=== PATIENT | male | born 1945 | race African-American/Black ===

== ENCOUNTER 2016-10-26 13:12 | Emergency (ER) | payer MEDICARE, OTHER ==
[~2016-10-26] VITALS: Ht 172.7 cm; Wt 77.1 kg
[2016-10-26] MEDS ORDERED: fentaNYL PF VIAL 100 MCG/2 ML VIAL IV PRN ×2 (13:30→14:00)
[2016-10-26] MEDS ORDERED: ONDANSETRON PF 4 MG/2 ML VIAL. IV ONE ×2 (13:30→14:00)
[2016-10-26 13:39] LABS: BASO % 0 % (0-3); EOS % 2 % (0-3); HEMATOCRIT 37.4 % (39.0-53.0); HEMOGLOBIN 12.6 g/dL (13.0-17.5); LYMPH # 1.8 x10^3/uL (1.0-4.8); LYMPH % 24 % (24-48); MEAN CORPUSCULAR HEMOGLOBIN 29 pg (25-35); MEAN CORPUSCULAR HGB CONC 34 g/dL (31-37); MEAN CORPUSCULAR VOLUME 87 fL (79-100); MONO % 11 % (0-9); NEUT % 64 % (31-73); PLATELET COUNT 259 x10^3/uL (140-400); RED BLOOD COUNT 4.32 x10^6/uL (4.30-5.70); RED CELL DISTRIBUTION WIDTH 12.7 % (11.5-14.5); WHITE BLOOD COUNT 7.8 x10^3/uL (4.0-11.0)
[2016-10-26 13:51] LABS: CALCIUM 8.6 mg/dL (8.5-10.1); CREATININE 1.6 mg/dL (0.7-1.3); GFR 42.9; POTASSIUM 3.4 mmol/L (3.5-5.1)
[2016-10-26 13:56] LABS: ALBUMIN 4.3 g/dL (3.4-5.0); TOTAL PROTEIN 8.5 g/dL (6.4-8.2)
[2016-10-26] MEDS ORDERED: IV NORMAL SALINE 1000ML BAG 1,000 ML IV SCH (13:57)
--- NOTE | 2016-10-26 14:28 | ED.ADGEN ---
Past Medical History Past Medical History: GERD, High Cholesterol, Hypertension, [place] Past Surgical History: Other Additional Past Surgical Histo: CARDIAC STENTS Alcohol Use: None Drug Use: None Adult General Chief Complaint Chief Complaint: ABDOMINAL PAIN HPI HPI Patient is a 70 year old man, history of CAD status post RI with [address], hypertension, hyperlipidemia, GERD presents to the emergency department with a complaint of abdominal pain, nausea and vomiting for the past week, states this is only with eating. Patient states that he is experiencing abdominal discomfort in the epigastric and right upper quadrant region, denies any similar lesions previously, states that he is having occasional episodes of emesis with food and fluid, denies any bile or blood. Has not previously had any issues aside from his GERD for which he takes medication daily. He denies any chest pain or shortness of breath, aside from his typical shortness of breath which is chronic. States that the pain and vomiting only occurs after eating, he is able tolerate fluids such as water without issue, but has become frustrated by the abdominal discomfort. Denies any swelling of the extremities, any recent travel or surgery, any fevers or chills, any weakness, numbness or tingling. Review of Systems Review of Systems Constitutional: Denies fever or chills. [] Eyes: Denies change in visual acuity. [] HENT: Denies nasal congestion or sore throat. [] Respiratory: Denies cough or shortness of breath. [] Cardiovascular: Denies chest pain or edema. [] GI: Abdominal pain, epigastric and right upper quadrant, nausea, vomiting, no bloody stools or diarrhea. [Last bowel movement was yesterday and was normal.] : Denies dysuria. [] Musculoskeletal: Denies back pain or joint pain. [] Integument: Denies rash. [] Neurologic: Denies headache, focal weakness or sensory changes. [] Endocrine: Denies polyuria or polydipsia. [] Lymphatic: Denies swollen glands. [] Psychiatric: Denies depression or anxiety. [] Current Medications Current Medications Current Medications Medications (Trade) Dose Ordered Sig/Vasiliy Start Time Stop Time Status Last Admin Dose Admin Dicyclomine HCl (Bentyl) 10 mg 1X ONCE 10/26/16 18:45 10/26/16 18:46 DC 10/26/16 18:38 10 MG Fentanyl Citrate (Fentanyl 2ml Vial) 25 mcg PRN Q15MIN PRN 10/26/16 14:00 10/27/16 13:59 Cancel Ondansetron HCl (Zofran) 4 mg 1X ONCE 10/26/16 14:00 10/26/16 14:05 DC Sodium Chloride 1,000 ml @ 1,000 mls/hr Q1H 10/26/16 13:57 10/26/16 14:56 DC 10/26/16 14:25 1,000 MLS/HR Allergies Allergies Allergies Coded Allergies Type Severity Reaction Last Updated Verified No Known Drug Allergies 10/26/16 No Physical Exam Physical Exam Constitutional: Well developed, well nourished, no acute distress, non-toxic appearance. [] HENT: Normocephalic, atraumatic, bilateral external ears normal, oropharynx moist, no oral exudates, nose normal. [] Eyes: PERRLA, EOMI, conjunctiva normal, no discharge. [] Neck: Normal range of motion, no tenderness, supple, no stridor. [] Cardiovascular:Heart rate regular rhythm, no murmur, S1, S2, rubs or gallops. [] Lungs & Thorax: Bilateral breath sounds clear to auscultation, no wheezing, rhonchi, rales. No chest or crepitus or tenderness. [] Abdomen: Bowel sounds normal, soft, tenderness to palpation in the epigastric and right are quadrant region, no rebound or rigidity, mild guarding, no masses , no pulsatile masses. [] Skin: Warm, dry, no erythema, no rash. [] Back: No tenderness, no CVA tenderness. [] Extremities: No tenderness, no cyanosis, no clubbing, ROM intact, no edema. [] Neurologic: Alert and oriented X 3, normal motor function, normal sensory function, no focal deficits noted. [] Psychologic: Affect normal, judgement normal, mood normal. [] Current Patient Data Vital Signs Vital Signs Date Time Temp Pulse Resp B/P (MAP) Pulse Ox O2 Delivery O2 Flow Rate FiO2 10/26/16 18:00 74 16 144/79 (100) 96 Room Air 10/26/16 13:20 97.7 97.7 Lab Values Laboratory Tests Test 10/26/16 13:29 10/26/16 15:45 White Blood Count 7.8 x10^3/uL (4.0-11.0) Red Blood Count 4.32 x10^6/uL (4.30-5.70) Hemoglobin 12.6 g/dL (13.0-17.5) L Hematocrit 37.4 % (39.0-53.0) L Mean Corpuscular Volume 87 fL (79-100) Mean Corpuscular Hemoglobin 29 pg (25-35) Mean Corpuscular Hemoglobin Concent 34 g/dL (31-37) Red Cell Distribution Width 12.7 % (11.5-14.5) Platelet Count 259 x10^3/uL (140-400) Neutrophils (%) (Auto) 64 % (31-73) Lymphocytes (%) (Auto) 24 % (24-48) Monocytes (%) (Auto) 11 % (0-9) H Eosinophils (%) (Auto) 2 % (0-3) Basophils (%) (Auto) 0 % (0-3) Neutrophils # (Auto) 5.0 x10^3uL (1.8-7.7) Lymphocytes # (Auto) 1.8 x10^3/uL (1.0-4.8) Monocytes # (Auto) 0.8 x10^3/uL (0.0-1.1) Eosinophils # (Auto) 0.1 x10^3/uL (0.0-0.7) Basophils # (Auto) 0.0 x10^3/uL (0.0-0.2) Sodium Level 141 mmol/L (136-145) Potassium Level 3.4 mmol/L (3.5-5.1) L Chloride Level 104 mmol/L (98-107) Carbon Dioxide Level 30 mmol/L (21-32) Anion Gap 7 (6-14) Blood Urea Nitrogen 16 mg/dL (8-26) Creatinine 1.6 mg/dL (0.7-1.3) H Estimated GFR (Cockcroft-Gault) 42.9 BUN/Creatinine Ratio 10 (6-20) Glucose Level 126 mg/dL (70-99) H Calcium Level 8.6 mg/dL (8.5-10.1) Total Bilirubin 1.0 mg/dL (0.2-1.0) Aspartate Amino Transferase (AST) 15 U/L (15-37) Alanine Aminotransferase (ALT) 16 U/L (16-63) Alkaline Phosphatase 100 U/L (46-116) Troponin I Quantitative < 0.017 ng/mL (0.000-0.055) Total Protein 8.5 g/dL (6.4-8.2) H Albumin 4.3 g/dL (3.4-5.0) Albumin/Globulin Ratio 1.0 (1.0-1.7) Lipase 128 U/L (73-393) Urine Collection Type Unknown Urine Color Yellow Urine Clarity Clear Urine pH 8.0 Urine Specific [place] 1.010 Urine Protein Negative mg/dL (NEG-TRACE) Urine Glucose (UA) Negative mg/dL (NEG) Urine Ketones (Stick) Negative mg/dL (NEG) Urine Blood Negative (NEG) Urine Nitrite Negative (NEG) Urine Bilirubin Negative (NEG) Urine Urobilinogen Dipstick 0.2 mg/dL (0.2 mg/dL) Urine Leukocyte Esterase Negative (NEG) Urine RBC 0 /HPF (0-2) Urine WBC 0 /HPF (0-4) Urine Squamous Epithelial Cells Occ /LPF Urine Bacteria 0 /HPF (0-FEW) Urine Hyaline Casts Occasional /HPF Urine Mucus Slight /LPF Laboratory Tests 10/26/16 13:29 Laboratory Tests 10/26/16 13:29 EKG EKG EC: Sinus rhythm, heart rate 77 beats/minute, left axis deviation, contour normality is noted in the inferior leads, with a QTC of 423, ND of 178, QRS of 94, abnormal ECG, does not meet STEMI criteria. As interpreted by me. Radiology/Procedures Radiology/Procedures [][facility] [address] [place], [place] [id number] IMAGING REPORT Signed PATIENT: TONY DELGADO ACCOUNT: [id number] : 1945 LOCATION: ER AGE: 70 SEX: M EXAM STATUS: PRE ER ORD. PHYSICIAN: TUSHAR YANES DO REASON: abd pain/n/v PROCEDURE: ACUTE ABDOMEN SERIES Two-view abdominal series and PA view chest x-ray History: Abdominal pain with nausea and vomiting. Findings: No obstructive bowel pattern is seen. Mild fecal retention is seen within the right side of the colon. No air-fluid levels are seen. No free intraperitoneal air is seen. The osseous structures are intact. Chest x-ray demonstrates no acute lung infiltrate or pleural effusion or pulmonary edema or pneumothorax. The heart size and pulmonary vasculature and mediastinum and both andrei are unremarkable. There is an exostosis involving the medial aspect of the proximal left humeral metaphysis. This could represent an osteochondroma or callus formation associated with any fracture. IMPRESSION: No acute radiographic abnormality. Osteochondroma versus healing callus formation around a fracture of the proximal left humerus. Clinical correlation is recommended. DICTATED and SIGNED BY: JAYANT LIRA MD DATE: 10/26/16 1434 CC: TUSHAR YANES DO ~ Course & Med Decision Making Course & Med Decision Making Pertinent Labs and Imaging studies reviewed. (See chart for details) Patient received antiemetics and pain medication the ED, with full resolution of his symptoms. Received ultrasound of the right upper quadrant, and acute abdominal series, both revealed no evidence of abdominal abnormalities, patient was noted to have a 17 mm nodule in the right kidney. Laboratory studies were also unremarkable, I did discuss these findings with patient. He has remained asymptomatic in the emergency department since receiving the initial dose of medication, and has been present in the ED for 5 hours, as his ultrasound was delayed 3 hours due to a systems issue. Patient states he is ready to go home, states that he will be able follow up with his primary care provider for additional evaluation, can call tomorrow. Discussed with patient that we have not identified a concerning cause for his symptoms here in the ED, but he is welcome to return at any time if symptoms return, if any new or concerning symptoms as discussed develop. Did recommend following up with his primary care provider on Thursday for additional evaluation, he was also given contact information for GI. Patient was given first dose of Bentyl in the ED, which he tolerated without issue, discharged with prescription for Bentyl and Zofran, clear and detailed return instructions and precautions. Dragon Disclaimer Dragon Disclaimer This electronic medical record was generated, in whole or in part, using a voice recognition dictation system. Departure Impression: Primary Impression: Abdominal pain Disposition: HOME, SELF-CARE Condition: IMPROVED Scripts Dicyclomine Hcl (BENTYL) 10 Mg Capsule 10 MG PO QID Y for PAIN, #12 TAB Prov: TUSHAR YANES DO 10/26/16 Ondansetron Hcl (ZOFRAN) 4 Mg Tablet 1 TAB PO Q8HRS Y for NAUSEA, #12 TAB Prov: TUSHAR YANES DO 10/26/16 TUSHAR YANES DO Oct 26, 2016 14:28
--- NOTE | 2016-10-26 14:40 | RAD ---
Two-view abdominal series and PA view chest x-ray History: Abdominal pain with nausea and vomiting. Findings: No obstructive bowel pattern is seen. Mild fecal retention is seen within the right side of the colon. No air-fluid levels are seen. No free intraperitoneal air is seen. The osseous structures are intact. Chest x-ray demonstrates no acute lung infiltrate or pleural effusion or pulmonary edema or pneumothorax. The heart size and pulmonary vasculature and mediastinum and both andrei are unremarkable. There is an exostosis involving the medial aspect of the proximal left humeral metaphysis. This could represent an osteochondroma or callus formation associated with any fracture. IMPRESSION: No acute radiographic abnormality. Osteochondroma versus healing callus formation around a fracture of the proximal left humerus. Clinical correlation is recommended.
[2016-10-26 16:01] LABS: BILIRUBIN,URINE NEGATIVE (NEG); GLUCOSE,URINE NEGATIVE (NEG); NITRITE,URINE NEGATIVE (NEG); PROTEIN,URINE NEGATIVE (NEG-TRACE); UROBILINOGEN,URINE 0.2 mg/dL (0.2 mg/dL)
[2016-10-26 16:08] LABS: BACTERIA,URINE 0 /HPF (0-FEW); RBC,URINE 0 /HPF (0-2); SQUAMOUS EPITHELIAL CELL,UR OCC /LPF; WBC,URINE 0 /HPF (0-4)
--- NOTE | 2016-10-26 17:28 | RAD ---
Limited abdomen ultrasound study of the right upper quadrant History: Right upper quadrant abdominal pain with nausea and vomiting. Findings: The liver measures 13.8 cm in length and is homogeneous. The pancreas is partially obscured due to overlying bowel gas. What is visualized of the pancreas is homogeneous without focal enlargement. The gallbladder is normal without gallstones. The extra hepatic bile duct measures 3.1 mm in caliber which is normal. The length of the right kidney is 9.2 cm. There is a small hypoechoic nodule within the anterior mid aspect of the right kidney measuring 17 mm in size. No hydronephrosis is seen on this side. IMPRESSION: Normal sonographic evaluation of the gallbladder. 17 mm nodule of the right kidney. Recommend outpatient abdomen CT with and without contrast for further evaluation.
[2016-10-26 18:00] VITALS: BP 144/79
[2016-10-26] MEDS ORDERED: ONDA4TAB7 PO (18:39)
[2016-10-26] MEDS ORDERED: DICY10CA53 PO (18:39)
[2016-10-26] MEDS ORDERED: DICYCLOMINE HCL 10 MG CAPSULE PO ONE (18:45)
--- NOTE | 2016-10-27 06:08 | EKG ---
[facility] [address] [place] [address] Test Date: 2016-10-26 Test Time: 13:49:50 Pat Name: TONY DELGADO Department: Room: Gender: M Community Health Navigator: : 1945 Requested By: TUSHAR YANES Order Number: [id number] Reading MD: Arthur Tse Measurements Intervals [place] Rate: 77 P: 42 MA: 178 QRS: 0 QRSD: 94 T: 49 QT: 372 QTc: 423 Interpretive Statements SINUS RHYTHM LEFTWARD AXIS QRS(T) CONTOUR ABNORMALITY CONSISTENT WITH INFERIOR INFARCT PROBABLY OLD ABNORMAL ECG RI6.01 No previous ECG available for comparison Electronically Signed On 10-27-2016 17:36:46 CDT by Arthur Tse
== END 2016-10-26 18:47 | disposition home or self-care (01) ==
LOC: ER 13:12
DX: R10.13 Epigastric pain (principal); R10.11 Right upper quadrant pain; R11.2 Nausea with vomiting, unspecified; E78.00 Pure hypercholesterolemia, unspecified; E78.5 Hyperlipidemia, unspecified; I10 Essential (primary) hypertension; I25.10 Atherosclerotic heart disease of native coronary artery without angina pectoris; K21.9 Gastro-esophageal reflux disease without esophagitis; I25.2 Old myocardial infarction; Z95.5 Presence of coronary angioplasty implant and graft
CPT/HCPCS: 36415; 74022; 76705; 80053; 81001; 83690; 84484; 85027; 93005; 96361; 96374; 99285; J2405; J7030

== ENCOUNTER 2017-04-19 11:30 | Emergency (ER) | payer MEDICARE, OTHER ==
[2017-04-19 12:11] LABS: ADD MAN DIFF? NO
[2017-04-19 12:18] LABS: BILIRUBIN,URINE NEGATIVE (NEG); CLARITY,URINE CLEAR; COLOR,URINE YELLOW; GLUCOSE,URINE NEGATIVE (NEG); NITRITE,URINE NEGATIVE (NEG); PROTEIN,URINE 30 mg/dL (NEG-TRACE)
[2017-04-19 12:19] LABS: BASO % 0 % (0-3); EOS # 0.1 x10^3/uL (0.0-0.7); EOS % 1 % (0-3); HEMATOCRIT 40.8 % (39.0-53.0); HEMOGLOBIN 13.9 g/dL (13.0-17.5); LYMPH # 1.5 x10^3/uL (1.0-4.8); LYMPH % 18 % (24-48); MEAN CORPUSCULAR HEMOGLOBIN 30 pg (25-35); MEAN CORPUSCULAR HGB CONC 34 g/dL (31-37); MEAN CORPUSCULAR VOLUME 87 fL (79-100); MONO # 0.7 x10^3/uL (0.0-1.1); MONO % 9 % (0-9); NEUT # 6.1 x10^3uL (1.8-7.7); NEUT % 73 % (31-73); PLATELET COUNT 265 x10^3/uL (140-400); RED CELL DISTRIBUTION WIDTH 12.8 % (11.5-14.5); WHITE BLOOD COUNT 8.5 x10^3/uL (4.0-11.0)
[2017-04-19 12:35] LABS: INR 1.1 (0.8-1.1); PARTIAL THROMBOPLASTIN TIME 29 SEC (24-38); PROTHROMBIN TIME PATIENT 13.3 SEC (11.7-14.0)
[2017-04-19 12:42] LABS: BACTERIA,URINE 0 /HPF (0-FEW); WBC,URINE OCC /HPF (0-4)
[2017-04-19 12:43] LABS: HYALINE CASTS, URINE MODERATE /HPF
[2017-04-19] MEDS: LIDO:MAALOX:DONNATAL 1:1:1 15 ML SINGLE DOSE SWSW ×2 (12:52)
[2017-04-19] MEDS: ONDANSETRON PF 4 MG/2 ML VIAL. IV ×2 (12:53)
[2017-04-19] MEDS: MORPHINE SULFATE 10 MG/ML VIAL. IV ×2 (12:53)
[2017-04-19] MEDS: IV NORMAL SALINE 1000ML BAG 1,000 ML IV ×2 (12:53)
[2017-04-19 12:54] LABS: BLOOD UREA NITROGEN 14 mg/dL (8-26); BUN/CREATININE RATIO 13 (6-20); CALCIUM 9.1 mg/dL (8.5-10.1); CARBON DIOXIDE 24 mmol/L (21-32); CHLORIDE 104 mmol/L (98-107); CREATININE 1.1 mg/dL (0.7-1.3); GFR 79.8; GLUCOSE 115 mg/dL (70-99); POTASSIUM 3.8 mmol/L (3.5-5.1)
[2017-04-19 13:00] LABS: ALBUMIN 4.4 g/dL (3.4-5.0); ALBUMIN/GLOBULIN RATIO 1.1 (1.0-1.7); ALK PHOS 94 U/L (46-116); ALT (SGPT) 20 U/L (16-63); AST (SGOT) 14 U/L (15-37); LIPASE 186 U/L (73-393); MAGNESIUM 2.1 mg/dL (1.8-2.4); TOTAL BILIRUBIN 0.5 mg/dL (0.2-1.0); TOTAL PROTEIN 8.5 g/dL (6.4-8.2)
[2017-04-19] MEDS ORDERED: CONTRAST GIVEN MC ×2 (13:00)
[2017-04-19 13:02] LABS: TROPONINI < 0.017 ng/mL (0.000-0.055)
[2017-04-19] MEDS: IOHEXOL 300 MG/ML 100ML VIAL. IV ×2 (13:02)
[2017-04-19 13:05] LABS: NT-PRO BNP 72 pg/mL (0-124)
[2017-04-19 13:16] LABS: ANION GAP 9 (6-14); SODIUM 137 mmol/L (136-145)
== END 2017-04-19 14:48 | disposition home or self-care (01) ==
LOC: ER 11:30
DX: R10.84 Generalized abdominal pain (principal); R94.31 Abnormal electrocardiogram [ECG] [EKG]; R10.13 Epigastric pain; R11.0 Nausea; I25.10 Atherosclerotic heart disease of native coronary artery without angina pectoris; K21.9 Gastro-esophageal reflux disease without esophagitis; E78.00 Pure hypercholesterolemia, unspecified; I10 Essential (primary) hypertension; I25.2 Old myocardial infarction; Z95.5 Presence of coronary angioplasty implant and graft
CPT/HCPCS: 36415; 74177; 80053; 81001; 83690; 83735; 83880; 84484; 85025; 85610; 85730; 93005; 96361; 96374; 96375; 99285-25; J2270; J2405; J7030; Q9967

== ENCOUNTER 2017-04-23 07:25 | Emergency (ER) | payer MEDICARE, OTHER ==
[2017-04-23] MEDS: KETOROLAC 60 MG/2 ML INJ. IM (08:00)
[2017-04-23 08:04] LABS: BILIRUBIN,URINE NEGATIVE (NEG); CLARITY,URINE CLEAR; COLOR,URINE YELLOW; GLUCOSE,URINE NEGATIVE (NEG); NITRITE,URINE NEGATIVE (NEG); PROTEIN,URINE NEGATIVE (NEG-TRACE); UROBILINOGEN,URINE 0.2 mg/dL (0.2 mg/dL)
[2017-04-23 08:15] LABS: BACTERIA,URINE FEW /HPF (0-FEW); BARBITURATES NEG (NEG); BENZODIAZEPINES NEG (NEG); CANNABINOIDS NEG (NEG); COCAINE NEG (NEG); METHADONE NEG (NEG); OPIATES NEG (NEG); PHENCYCLIDINE NEG (NEG); RBC,URINE 0 /HPF (0-2); SQUAMOUS EPITHELIAL CELL,UR OCC /LPF
[2017-04-23 08:16] LABS: AMPHETAMINE/METHAMPHETAMINE NEG (NEG); ETHANOL, URINE NEG (NEG)
[2017-04-23 08:17] LABS: ADD MAN DIFF? NO
[2017-04-23] MEDS ORDERED: KETOROLAC 30 MG/ML INJ. (08:18)
[2017-04-23] MEDS: FAMOTIDINE 20 MG/2 ML VIAL IVP (08:21)
[2017-04-23 08:23] LABS: BASO % 1 % (0-3); EOS # 0.2 x10^3/uL (0.0-0.7); EOS % 2 % (0-3); HEMATOCRIT 42.2 % (39.0-53.0); HEMOGLOBIN 14.4 g/dL (13.0-17.5); LYMPH # 1.7 x10^3/uL (1.0-4.8); LYMPH % 20 % (24-48); MEAN CORPUSCULAR HEMOGLOBIN 29 pg (25-35); MEAN CORPUSCULAR HGB CONC 34 g/dL (31-37); MEAN CORPUSCULAR VOLUME 86 fL (79-100); MONO # 0.9 x10^3/uL (0.0-1.1); MONO % 11 % (0-9); NEUT # 5.8 x10^3uL (1.8-7.7); NEUT % 67 % (31-73); PLATELET COUNT 281 x10^3/uL (140-400); RED BLOOD COUNT 4.89 x10^6/uL (4.30-5.70); RED CELL DISTRIBUTION WIDTH 12.9 % (11.5-14.5); WHITE BLOOD COUNT 8.7 x10^3/uL (4.0-11.0)
[2017-04-23] MEDS: KETOROLAC 15 MG/ML VIAL. IV (08:25)
[2017-04-23] MEDS: KETOROLAC 30 MG/ML INJ. IV (08:30)
[2017-04-23 08:33] LABS: ANION GAP 15 (6-14); BLOOD UREA NITROGEN 19 mg/dL (8-26); BUN/CREATININE RATIO 16 (6-20); CARBON DIOXIDE 24 mmol/L (21-32); CHLORIDE 103 mmol/L (98-107); CREATININE 1.2 mg/dL (0.7-1.3); GFR 72.2; GLUCOSE 130 mg/dL (70-99); POTASSIUM 3.9 mmol/L (3.5-5.1); SODIUM 142 mmol/L (136-145)
[2017-04-23 08:37] LABS: ETHANOL < 10 mg/dL (0-10)
[2017-04-23 08:39] LABS: ALBUMIN 4.3 g/dL (3.4-5.0); ALBUMIN/GLOBULIN RATIO 1.1 (1.0-1.7); ALK PHOS 84 U/L (46-116); ALT (SGPT) 19 U/L (16-63); AST (SGOT) 17 U/L (15-37); LIPASE 211 U/L (73-393); TOTAL BILIRUBIN 0.5 mg/dL (0.2-1.0); TOTAL PROTEIN 8.3 g/dL (6.4-8.2)
[2017-04-23] MEDS ORDERED: MAGNESIUM CITRATE 296 ML SOLUTION. PO (09:15)
== END 2017-04-23 09:12 | disposition left against medical advice (07) ==
LOC: ER 09:12
DX: K59.00 Constipation, unspecified (principal); I25.10 Atherosclerotic heart disease of native coronary artery without angina pectoris; I10 Essential (primary) hypertension; E78.00 Pure hypercholesterolemia, unspecified; K21.9 Gastro-esophageal reflux disease without esophagitis; I25.2 Old myocardial infarction; Z95.5 Presence of coronary angioplasty implant and graft
CPT/HCPCS: 36415; 74022; 80053; 80307; 81001; 83690; 85025; 96374; 96375; 99285-25; G0480; J1885; S0028

== ENCOUNTER 2017-04-29 07:53 | Emergency (ER) | payer MEDICARE, OTHER ==
[2017-04-29 08:31] LABS: ADD MAN DIFF? NO
[2017-04-29] MEDS: MORPHINE SULFATE 2 MG/ML DISP.SYRIN. IV/SQ ×2 (08:31)
[2017-04-29] MEDS: ONDANSETRON PF 4 MG/2 ML VIAL. IV ×2 (08:31)
[2017-04-29 08:45] LABS: BASO % 1 % (0-3); EOS # 0.1 x10^3/uL (0.0-0.7); EOS % 2 % (0-3); HEMATOCRIT 42.1 % (39.0-53.0); HEMOGLOBIN 14.3 g/dL (13.0-17.5); LYMPH # 1.8 x10^3/uL (1.0-4.8); LYMPH % 24 % (24-48); MEAN CORPUSCULAR HEMOGLOBIN 30 pg (25-35); MEAN CORPUSCULAR HGB CONC 34 g/dL (31-37); MEAN CORPUSCULAR VOLUME 88 fL (79-100); MONO # 0.9 x10^3/uL (0.0-1.1); MONO % 13 % (0-9); NEUT # 4.5 x10^3uL (1.8-7.7); NEUT % 61 % (31-73); PLATELET COUNT 301 x10^3/uL (140-400); RED BLOOD COUNT 4.81 x10^6/uL (4.30-5.70); RED CELL DISTRIBUTION WIDTH 13.2 % (11.5-14.5); WHITE BLOOD COUNT 7.4 x10^3/uL (4.0-11.0)
[2017-04-29 08:55] LABS: ANION GAP 13 (6-14); BLOOD UREA NITROGEN 25 mg/dL (8-26); BUN/CREATININE RATIO 18 (6-20); CALCIUM 9.5 mg/dL (8.5-10.1); CARBON DIOXIDE 24 mmol/L (21-32); CHLORIDE 102 mmol/L (98-107); CREATININE 1.4 mg/dL (0.7-1.3); GFR 60.4; GLUCOSE 113 mg/dL (70-99); POTASSIUM 4.2 mmol/L (3.5-5.1); SODIUM 139 mmol/L (136-145)
[2017-04-29 09:00] LABS: BILIRUBIN,URINE NEGATIVE (NEG); CLARITY,URINE CLEAR; COLOR,URINE YELLOW; GLUCOSE,URINE NEGATIVE (NEG); NITRITE,URINE NEGATIVE (NEG); PH,URINE 5.5; PROTEIN,URINE NEGATIVE (NEG-TRACE); UROBILINOGEN,URINE 0.2 mg/dL (0.2 mg/dL)
[2017-04-29 09:02] LABS: ALBUMIN 4.3 g/dL (3.4-5.0); ALBUMIN/GLOBULIN RATIO 1.1 (1.0-1.7); ALK PHOS 97 U/L (46-116); ALT (SGPT) 17 U/L (16-63); AST (SGOT) 7 U/L (15-37); LIPASE 208 U/L (73-393); TOTAL BILIRUBIN 0.4 mg/dL (0.2-1.0); TOTAL PROTEIN 8.3 g/dL (6.4-8.2)
[2017-04-29 09:21] LABS: BACTERIA,URINE 0 /HPF (0-FEW); RBC,URINE 0 /HPF (0-2); WBC,URINE 0 /HPF (0-4)
== END 2017-04-29 10:14 | disposition home or self-care (01) ==
LOC: ER 07:53
DX: N40.0 Benign prostatic hyperplasia without lower urinary tract symptoms (principal); R10.13 Epigastric pain; I10 Essential (primary) hypertension; E78.00 Pure hypercholesterolemia, unspecified; K21.9 Gastro-esophageal reflux disease without esophagitis; I25.10 Atherosclerotic heart disease of native coronary artery without angina pectoris; Z95.5 Presence of coronary angioplasty implant and graft; I25.2 Old myocardial infarction
CPT/HCPCS: 36415; 74176; 80053; 81001; 83690; 85025; 93005; 96374; 96375; 99285-25; J2270; J2405

== ENCOUNTER 2017-05-27 07:17 | Emergency (ER) | payer MEDICARE, OTHER | END 2017-05-27 09:02 | disposition home or self-care (01) | LOC: ER 07:17 | DX: M54.32 Sciatica, left side (principal); M54.6 Pain in thoracic spine; M79.605 Pain in left leg; K21.9 Gastro-esophageal reflux disease without esophagitis; E78.00 Pure hypercholesterolemia, unspecified; I10 Essential (primary) hypertension; I25.10 Atherosclerotic heart disease of native coronary artery without angina pectoris; Z95.5 Presence of coronary angioplasty implant and graft | CPT/HCPCS: 93971; 99284-25 ==

== ENCOUNTER 2017-08-27 13:24 | Emergency (ER) | payer MEDICARE, OTHER ==
[2017-08-27] MEDS: traMADol 50 MG TABLET PO (13:56)
== END 2017-08-27 14:00 | disposition home or self-care (01) ==
LOC: ER 14:00
DX: G89.29 Other chronic pain (principal); M25.512 Pain in left shoulder; M25.511 Pain in right shoulder; E78.00 Pure hypercholesterolemia, unspecified; I10 Essential (primary) hypertension; I25.10 Atherosclerotic heart disease of native coronary artery without angina pectoris; K21.9 Gastro-esophageal reflux disease without esophagitis; I25.2 Old myocardial infarction; Z95.5 Presence of coronary angioplasty implant and graft
CPT/HCPCS: 99282

== ENCOUNTER 2020-09-22 17:17 | Emergency (ER) | payer MEDICARE, OTHER ==
[~2020-09-22] VITALS: Ht 172.7 cm; Wt 79.5 kg
[~2020-09-22 17:17] MED LIST: CIPR500T94 PO; DICY10CA53 PO; HYDR-3164 PO; ONDA4TAB7 PO; TRAM50TA PO
[2020-09-22 18:20] LABS: BASO # 0.1 x10^3/uL (0.0-0.2); BASO % 1 % (0-3); EOS # 0.1 x10^3/uL (0.0-0.7); EOS % 2 % (0-3); HEMATOCRIT 43.1 % (39.0-53.0); HEMOGLOBIN 14.8 g/dL (13.0-17.5); LYMPH # 1.6 x10^3/uL (1.0-4.8); LYMPH % 23 % (24-48); MEAN CORPUSCULAR HEMOGLOBIN 30 pg (25-35); MEAN CORPUSCULAR HGB CONC 34 g/dL (31-37); MEAN CORPUSCULAR VOLUME 88 fL (79-100); MONO # 0.8 x10^3/uL (0.0-1.1); MONO % 11 % (0-9); NEUT # 4.4 x10^3/uL (1.8-7.7); NEUT % 63 % (31-73); PLATELET COUNT 256 x10^3/uL (140-400); RED BLOOD COUNT 4.91 x10^6/uL (4.30-5.70); RED CELL DISTRIBUTION WIDTH 12.7 % (11.5-14.5); WHITE BLOOD COUNT 6.9 x10^3/uL (4.0-11.0)
--- NOTE | 2020-09-22 18:21 | RAD ---
INDICATION: Reason: soa / Spl. Instructions: / History: COMPARISON: None. FINDINGS: 2 view of chest obtained. Degenerative changes the spine. Cardiac silhouette is unremarkable. No focal airspace consolidation o r pulmonary edema. Hypertrophic changes at acromioclavicular joints. IMPRESSION: * No focal airspace consolidation. Electronically signed by: Glynn Kelly MD (09/22/2020 6:19 PM) [id number]
[2020-09-22 18:27] LABS: CALCIUM 8.6 mg/dL (8.5-10.1); CREATININE 1.1 mg/dL (0.7-1.3); GFR 79.2
[2020-09-22 18:32] LABS: ALBUMIN 4.5 g/dL (3.4-5.0); ALBUMIN/GLOBULIN RATIO 1.3 (1.0-1.7); MAGNESIUM 2.1 mg/dL (1.8-2.4); TOTAL BILIRUBIN 0.8 mg/dL (0.2-1.0); TOTAL PROTEIN 8.1 g/dL (6.4-8.2)
--- NOTE | 2020-09-22 19:10 | EKG ---
[facility] [address] [place] [address] Test Date: 2020-09-22 Test Time: 17:44:56 Pat Name: TONY DELGADO Department: Room: Gender: Civil Celebrant: : 1945 Requested By: TONEY BENITO Order Number: [id number] Reading MD: Measurements Intervals [place] Rate: 73 P: 52 [place]: 190 QRS: -5 QRSD: 100 T: 104 QT: 392 QTc: 436 Interpretive Statements SINUS RHYTHM LEFTWARD AXIS T ABNORMALITY IN ANTEROLATERAL LEADS ABNORMAL ECG RI6.02 No previous ECG available for comparison
[2020-09-22] MEDS ORDERED: ALBUTEROL SULFATE 2.5 MG/3 ML NEBU. NEB ONE (21:45)
[2020-09-22] MEDS ORDERED: PROVENTIL HFA6.7 G2 INH (22:27)
--- NOTE | 2020-09-22 22:27 | ED.ADGEN ---
Past Medical History Past Medical History: Anxiety, CAD, GERD, High Cholesterol, Hypertension, [place] Past Surgical History: Other Additional Past Surgical Histo: CARDIAC STENTS Smoking Status: Never Smoker Alcohol Use: None Drug Use: None General Adult EDM: Chief Complaint: SHORTNESS OF BREATH HPI: HPI: Patient is a 74 year old AA male who presents emergency department accompanied by his family member with complaints of a sudden onset of a breathing attack. Patient reports he is out of his puffer, his red and white inhaler, that he uses when he feels like this. Patient denies any chest pain, palpitations, diaphoresis, fever, cough, body aches, back pain, dizziness, fatigue, nausea, vomiting, diarrhea, abdominal pain, back pain, or rash. Patient states that he wheezes when he exhales. He currently denies any pain. Review of Systems: Review of Systems: Complete ROS is negative unless otherwise noted in HPI. Current Medications: Current Medications Medications (Trade) Dose Ordered Sig/Vasiliy Start Time Stop Time Status Last Admin Dose Admin Albuterol Sulfate (Ventolin Neb Soln) 2.5 mg 1X ONCE 09/22/20 21:45 09/22/20 21:46 DC 09/22/20 21:42 2.5 MG Allergies: Allergies: Allergies Coded Allergies Type Severity Reaction Last Updated Verified No Known Drug Allergies 10/26/16 No Physical Exam: PE: See Above Constitutional: Well developed, well nourished, no acute distress, non-toxic appearance. [] HENT: Normocephalic, atraumatic, bilateral external ears normal, nose normal. [] Eyes: PERRLA, EOMI, conjunctiva normal, no discharge. [] Neck: Normal range of motion, no stridor. [] Cardiovascular:Heart rate regular rhythm, no murmur Lungs & Thorax: Respirations even and unlabored, no retractions, no respiratory distress, no wheezing, lungs clear in all gamez, speaking full sentences Abdomen: soft, no tenderness Skin: Warm, dry, no erythema, no rash. [] Extremities: No cyanosis, ROM intact, no edema. [] Neurologic: Alert and oriented X 3, normal motor, normal sensory no focal deficits noted. [] Psychologic: Affect normal, judgement normal, mood normal. [] Current Patient Data: Labs: Laboratory Tests Test 09/22/20 18:07 09/22/20 21:40 White Blood Count 6.9 x10^3/uL (4.0-11.0) Red Blood Count 4.91 x10^6/uL (4.30-5.70) Hemoglobin 14.8 g/dL (13.0-17.5) Hematocrit 43.1 % (39.0-53.0) Mean Corpuscular Volume 88 fL (79-100) Mean Corpuscular Hemoglobin 30 pg (25-35) Mean Corpuscular Hemoglobin Concent 34 g/dL (31-37) Red Cell Distribution Width 12.7 % (11.5-14.5) Platelet Count 256 x10^3/uL (140-400) Neutrophils (%) (Auto) 63 % (31-73) Lymphocytes (%) (Auto) 23 % (24-48) L Monocytes (%) (Auto) 11 % (0-9) H Eosinophils (%) (Auto) 2 % (0-3) Basophils (%) (Auto) 1 % (0-3) Neutrophils # (Auto) 4.4 x10^3/uL (1.8-7.7) Lymphocytes # (Auto) 1.6 x10^3/uL (1.0-4.8) Monocytes # (Auto) 0.8 x10^3/uL (0.0-1.1) Eosinophils # (Auto) 0.1 x10^3/uL (0.0-0.7) Basophils # (Auto) 0.1 x10^3/uL (0.0-0.2) Sodium Level 141 mmol/L (136-145) Potassium Level 4.0 mmol/L (3.5-5.1) Chloride Level 105 mmol/L (98-107) Carbon Dioxide Level 25 mmol/L (21-32) Anion Gap 11 (6-14) Blood Urea Nitrogen 10 mg/dL (8-26) Creatinine 1.1 mg/dL (0.7-1.3) Estimated GFR (Cockcroft-Gault) 79.2 BUN/Creatinine Ratio 9 (6-20) Glucose Level 110 mg/dL (70-99) H Calcium Level 8.6 mg/dL (8.5-10.1) Magnesium Level 2.1 mg/dL (1.8-2.4) Total Bilirubin 0.8 mg/dL (0.2-1.0) Aspartate Amino Transferase (AST) 17 U/L (15-37) Alanine Aminotransferase (ALT) 26 U/L (16-63) Alkaline Phosphatase 91 U/L (46-116) Creatine Kinase 140 U/L (39-308) Creatine Kinase MB (Mass) 1.2 ng/mL (0.0-3.6) Creatine Kinase MB Relative Index 0.9 % (0-4) Troponin I Quantitative < 0.017 ng/mL (0.000-0.055) < 0.017 ng/mL (0.000-0.055) HC-Jnh-I-Type Natriuretic Peptide 70 pg/mL (0-124) Total Protein 8.1 g/dL (6.4-8.2) Albumin 4.5 g/dL (3.4-5.0) Albumin/Globulin Ratio 1.3 (1.0-1.7) Lipase 110 U/L (73-393) Laboratory Tests 09/22/20 18:07 Laboratory Tests 09/22/20 18:07 Vital Signs: Vital Signs Date Time Temp Pulse Resp B/P (MAP) Pulse Ox O2 Delivery O2 Flow Rate FiO2 09/22/20 22:29 89 16 141/81 (101) 98 Room Air 09/22/20 17:31 97.8 97.8 EKG: EK-sinus rhythm, leftward axis, T abnormalities in anterior lateral leads, rate 73, no STEMI, read by Dr. Villar [] Heart Score: C/O Chest Pain: No Risk Scores: Score 0 - 3: 2.5% MACE over next 6 weeks - Discharge Home Score 4 - 6: 20.3% MACE over next 6 weeks - Admit for Clinical Observation Score 7 - 10: 72.7% MACE over next 6 weeks - Early Invasive Strategies Radiology/Procedures: Radiology/Procedures: PROCEDURE: CHEST PA & LATERAL INDICATION: Reason: soa / Spl. Instructions: / History: COMPARISON: None. FINDINGS: 2 view of chest obtained. Degenerative changes the spine. Cardiac silhouette is unremarkable. No focal airspace consolidation or pulmonary edema. Hypertrophic changes at acromioclavicular joints. IMPRESSION: * No focal airspace consolidation. Electronically signed by: Glynn Kelly MD (09/22/2020 6:19 PM) [id number] [] Course & Med Decision Making: Course & Med Decision Making Pertinent Labs and Imaging studies reviewed. (See chart for details) [] Patient presented to the ER with complaints of a sudden onset of breathing and tach he denied any chest pain, diaphoresis, nausea, vomiting, or other acute signs of ACS. EKG revealed no acute findings, troponin was negative x2, CBC unremarkable, CMP unremarkable. Physical exam did not reveal any abnormal lung sounds, there were some intermittent mild expiratory wheezes from upper airway. Patient's vital signs are stable, O2 sat remained above 96% on room air. Prescription was written for a ProAir inhaler as requested by the patient. I recommended that he follow-up with his primary care doctor in the next 1 to 2 days, return to the ER symptoms worsen or fever develop. Patient verbalized an understanding of home care, medications, follow-up, and return to ED instructions and was in agreement with the plan of care. Dragon Disclaimer: Dragon Disclaimer: This electronic medical record was generated, in whole or in part, using a voice recognition dictation system. Departure Departure Impression: Primary Impression: Shortness of breath Additional Impression: Medication refill Disposition: HOME / SELF CARE / HOMELESS Condition: STABLE Referrals: TRISTAN BLANK MD (PCP) Patient Instructions: Medication Refill, Emergency Department, Shortness of Breath, [id number] Additional Instructions: Fill the prescription and use it as directed. Follow-up with your primary care doctor in 1 to 2 days, return to the ER if symptoms worsen or fever develops. Scripts Albuterol Sulfate (Proventil Hfa) 6.7 Gm Hfa.aer.ad 2 PUFF INH PRN Q6HRS PRN for SHORTNESS OF BREATH for 30 Days, #1 EACH 0 Refills Prov: TONEY BENITO CLAMP REMOVER 09/22/20 Problem Qualifiers TONEY BENITO CLAMP REMOVER Sep 22, 2020 22:27
[2020-09-22 22:29] VITALS: BP 141/81
== END 2020-09-22 22:30 | disposition home or self-care (01) ==
LOC: ER 17:17
DX: R06.02 Shortness of breath (principal); Z76.0 Encounter for issue of repeat prescription; E78.00 Pure hypercholesterolemia, unspecified; K21.9 Gastro-esophageal reflux disease without esophagitis; I10 Essential (primary) hypertension; I25.10 Atherosclerotic heart disease of native coronary artery without angina pectoris; I25.2 Old myocardial infarction
CPT/HCPCS: 71046; 80053; 82553; 83690; 83735; 83880; 84484; 85025; 93005; 94640; 99285; J7613; 36415

== ENCOUNTER → 2021-04-17 | Outpatient (CLI) | payer MEDICARE ==
[~2021-04-17] MED LIST changes: +IOHEXOL 300 MG/ML 100ML VIAL. IV ONE; +PROVENTIL HFA6.7 G2 INH
--- NOTE | 2021-04-17 15:34 | RAD ---
Study: CT neck with contrast INDICATION: Left parotid gland mass. COMPARISON: None. TECHNIQUE: Axial CT imaging of the neck performed after the intravenous administration of 70 cc Omnip aque 300 contrast. Coronal and sagittal reformats were obtained. One or more of the following individualized dose reduction techniques were utilized for this examinat ion: 1. Automated exposure control 2. Adjustment of the mA and/or kV according to patient size 3. Use of iterative reconstruction technique. FINDINGS: Heterogeneous, lobulated parotid gland mass on the left much of which enhances. No associated mineral ization. The mass involves both the superficial and deep lobes and is measured at up to 4.9 cm transv erse by 6.2 cm craniocaudal by 4.2 cm AP. The margins of the mass are relatively well-circumscribed a nd is predominantly confined to the parotid gland though there may be a small area of extraglandular extension posteriorly deep to the sternocleidomastoid such as on image 69 series 2. No major vascular encasement. Mostly veins are seen coursing along the periphery of the mass/parotid gland. The right parotid gland is unremarkable as are the submandibular glands and the thyroid. No pathologi kira enlarged lymph nodes throughout the neck based on short axis dimension. Aberrant right subclavian artery. Scattered calcified and noncalcified atheromatous plaque to include the carotid siphons and intracranial vertebral arteries. Unremarkable globes and retrobulbar soft tissues. Completely absent teeth. Advanced cervical spondylo sis with multilevel osseous neural foraminal stenosis ranging from mild to severe. Incompletely evalu ated central canal stenosis but likely at least moderate at several levels. Degenerative remodeling a t the atlantodental interface. Chronic mineralization anterior to the body of C2. The intracranial co ntents included in the pdxzk-[id number]-okin are not well evaluated. Minimal paraseptal cystic change at the upper lungs. Right upper lobe nodule on image 21 series 2 measuring 4 mm. A few additional millimetri c nodules. Visualized mediastinal lymph nodes are unremarkable. No discrete mucosal mass. Unremarkable epiglottis. Well-maintained parapharyngeal fat. IMPRESSION: 1. 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 There may be a small area of extraglandular extension posteriorly deep to the sternocleidomastoid but difficult to confirm. The mass in not infiltrative with well-delineated margins. The majority of the mass is enhancing but with some areas of absent enhancement/necrosis. Th e differential is broad and includes both benign and malignant etiologies such as a pleomorphic adeno ma or Warthin tumor. Tissue sampling would be needed to confirm. 2. Several chronic observations outlined in the body the report to include advanced multilevel cervi dary spondylosis. 3. A few small pulmonary nodules at the upper lungs such as right upper lobe measuring up to 4 mm. P er Fleischner guidelines for incidental nodules under 6 mm, 12 month follow-up CT chest if there are risk factors for lung malignancy. Electronically signed by: KEITH GUERRA MD (04/17/2021 3:32 PM) [facility]
--- NOTE | 2021-04-17 17:08 | RAD ---
US TESTICULAR History: Reason: TESTICULAR MASS / Spl. Instructions: / History: Comparison: None. Technique: Multiple grayscale, color flow Doppler and Doppler spectral analysis images of the scrotum are obtained. Findings: Right testicle measures 4.1 x 2.7 x 2.2 cm. Right testicle demonstrates normal parenchymal echogenic ity. Right epididymis is unremarkable. Left testicle measures 3.3 x 2.8 x 2.8 cm. Left testicle demonstrates normal parenchymal echogenici ty. Multiple left epididymal cysts largest measures 7.0 x 5.3 x 4.0 cm. There is no hydrocele or varicocele. No scrotal hyperemia or swelling. Doppler imaging demonstrates normal flow to both testicles, without evidence of torsion. IMPRESSION: 1. Left epididymal head cysts corresponding with patient's palpable abnormality. Electronically signed by: Gennaro Ramos DO (04/17/2021 5:05 PM) [id number]
== END ==
LOC: US 11:18
PROVIDERS: ATTEND Family Medicine
DX: N50.3 Cyst of epididymis (principal); N50.89 Other specified disorders of the male genital organs; R91.8 Other nonspecific abnormal finding of lung field; K11.8 Other diseases of salivary glands; J98.4 Other disorders of lung; M47.812 Spondylosis without myelopathy or radiculopathy, cervical region; M48.02 Spinal stenosis, cervical region
CPT/HCPCS: 70491; 76870; Q9967

== ENCOUNTER 2021-05-13 08:49 | Outpatient (CLI) | payer MEDICARE ==
[~2021-05-13] VITALS: Ht 172.7 cm; Wt 80.9 kg
[~2021-05-13 08:49] MED LIST changes: -IOHEXOL 300 MG/ML 100ML VIAL. IV ONE
[2021-05-13] MEDS ORDERED: FAMO40TA4 PO (09:15)
[2021-05-13] MEDS ORDERED: AMLO-187 PO (09:15)
[2021-05-13 09:40] VITALS: BP 170/94
[2021-05-13] MEDS ORDERED: LIDOCAINE WITH 8.4% SOD BICARB 3 ML DISP.SYRIN. ONE (11:42)
[2021-05-13] MEDS ORDERED: LIDOCAINE WITH 8.4% SOD BICARB 3 ML DISP.SYRIN. INJ ONE (12:00)
[2021-05-13 12:10] VITALS: BP 179/100
[2021-05-13 12:31] VITALS: BP 153/83
--- NOTE | 2021-05-13 12:43 | NUR ---
Discharge Note: TONY DELGADO Discharge instructions and discharge home medications reviewed with Patient and a copy given. All questions have been answered and understanding verbalized. The following instructions and handouts were given: Post biopsy, incision care. Discontinued lines and drains: No lines to dc. Patient discharged to home with Sister via Personal Vehicle.
--- NOTE | 2021-05-13 13:15 | RAD ---
Ultrasound-guided fine-needle aspiration, left parotid mass 05/13/2021 INDICATION: Large left parotid mass COMPARISON STUDY: CT of the neck with contrast April 17, 2021 Consent: The procedure was explained in its entirety to the patient or the patients designated repres entative by a member of the treatment team, including a discussion of the risks, benefits and commonl y accepted alternatives to the procedure, as well as the expected consequences of no therapy whatsoev er. Discussion of the risks included, but was not limited to, those that are most frequent and thos e that are rare but possibly severe or life-threatening, as well as the possibility of unforeseen com plications. Discussion: The left face prepped and draped using sterile barrier technique. 1% lidocaine was admini stered for local anesthesia. Ultrasound evaluation demonstrates a large heterogenous mass in the left parotid gland. Fine-needle aspiration was performed in multiple passes. Rotex biopsy was also perfor med. Manual pressure was held. Repeat ultrasound and states no immediate complication. Samples were d elivered to pathology was present throughout the exam. IMPRESSION: Ultrasound-guided, fine-needle aspiration, left parotid mass Electronically signed by: Javier Ramos MD (05/13/2021 1:13 PM) [id number]
== END 2021-05-13 12:46 | disposition home or self-care (01) ==
LOC: INTRAD 08:49
PROVIDERS: ATTEND Family Medicine
DX: D11.0 Benign neoplasm of parotid gland (principal); I25.10 Atherosclerotic heart disease of native coronary artery without angina pectoris; I10 Essential (primary) hypertension; E78.00 Pure hypercholesterolemia, unspecified; K21.9 Gastro-esophageal reflux disease without esophagitis; Z79.899 Other long term (current) drug therapy; Z98.890 Other specified postprocedural states
CPT/HCPCS: 10005; C1892; J3490